=== PATIENT | male | born 1990 | race Caucasian/White ===

== ENCOUNTER 2022-01-16 06:09 | Day surgery (SDC) | payer BC ==
[2022-01-14 09:37] VITALS: BMI 37.3
[2022-01-16] MEDS ORDERED: PROPOFOL 20 ML ONE ×2 (08:14→08:44)
[2022-01-16] MEDS ORDERED: Glycopyrrolate 0.2 MG/ML 5 ML SYRINGE ONE (08:14)
[2022-01-16] MEDS ORDERED: Midazolam HCl 2 mg/2 ml Vial ONE (08:14)
[2022-01-16] MEDS ORDERED: PROPOFOL 40 ML ONE (08:14)
== END 2022-01-16 09:26 | disposition home or self-care (01) ==
LOC: CSHSDC 06:09
PROVIDERS: ATTEND Internal Medicine Gastroenterology
PROC: 0DJD8ZZ Inspection of Lower Intestinal Tract, Via Natural or Artificial Opening Endoscopic (ICD-10-PCS; principal; 2022-01-16)
PROC: 0DB68ZX Excision of Stomach, Via Natural or Artificial Opening Endoscopic, Diagnostic (ICD-10-PCS; principal; 2022-01-16)
DX: K29.50 Unspecified chronic gastritis without bleeding (principal); K20.90 Esophagitis, unspecified without bleeding; K25.9 Gastric ulcer, unspecified as acute or chronic, without hemorrhage or perforation; K29.80 Duodenitis without bleeding; K26.9 Duodenal ulcer, unspecified as acute or chronic, without hemorrhage or perforation; K64.9 Unspecified hemorrhoids
CPT/HCPCS: 88305; 88342; J2250; J2704